=== PATIENT | female | born 1995 | race American Indian/Alaskan Native ===

== ENCOUNTER 2018-01-12 06:25 | Day surgery (SDC) | payer OTHER ==
--- NOTE | 2018-01-12 08:03 | Anesthesia Day of Surgery ---
Anesthesia Day of Surgery - Day of Surgery Patient Examined: Yes Patient H&P Reviewed: Yes Patient is NPO: Yes Beta Blockers: No
--- NOTE | 2018-01-12 08:03 | Anesthesia Consultation ---
Anesthesia Consult and Med Hx Date of service: 01/12/18 - Airway Anesthetic Teeth Evaluation: Good ROM Head & Neck: Adequate Mental/Hyoid Distance: Adequate Mallampati Class: Class I Intubation Access Assessment: Good - Pulmonary Exam CTA: Yes - Cardiac Exam Cardiac Exam: RRR - Pre-Operative Health Status ASA Pre-Surgery Classification: ASA2 Proposed Anesthetic Plan: General, MAC - Pulmonary Hx Asthma: Yes
--- NOTE | 2018-01-12 08:22 | Operative Report ---
Operative Report Operative Report: OPERATIVE REPORT - EGD DATE 01/12/18 SURGERY: 1Upper endoscopy. 2. antral mucosal biopsy SURGEON: Jose Mccord M.D. PRE OP DX: dyspepsia POST OP DX: hiatal hernia TYPE OF ANESTHESIA: MAC. ESTIMATED BLOOD LOSS: None. COMPLICATIONS: None. SPECIMENS REMOVED: None. FINDINGS: 1. Small hiatal hernia. 2. raised mucosal area at antrum INDICATIONS:INDICATION FOR PROCEDURE: Patient is a 22-year-old female with a long history of morbid obesity. She is planned to have a weight loss procedure and is here for preoperative planning EGD. PROCEDURE DETAILS: After consent was reviewed, patient was taken back to the operating room where patient was placed in the left lateral decubitus position and a bite block was placed in the mouth. After a time-out was called, MAC anesthesia was initiated. I then passed the endoscope into her oropharynx, into her esophagus, visualized the entire esophagus, which was all within normal limits. I then visualized the stomach and the first portion of the duodenum and there were no abnormalities I could clearly visualize. I then retroflexed the scope in the stomach and visualized the hiatus and I could see a small hiatal hernia. There was a raised mucosal area that was biopsied with cold forceps. It was smooth, no ulceration.I then desufflated the stomach and removed the endoscope. Patient tolerated procedure well and was transferred to recovery room in good and stable condition.
--- NOTE | 2018-01-12 08:23 | Discharge Summary ---
Providers - Providers Date of discharge: 01/12/18 Attending physician: DONALD BENÍTEZ Primary care physician: ZULEYKA FARRIS Hospitalization Condition: Good Procedures: egd Hospital course: pt had an uneventful egd as part of pre-operative planning for upcoming bariatric surgery Disposition: DC-01 TO HOME OR SELFCARE Core Measure Documentation - Palliative Care Palliative Care/ Comfort Measures: Not Applicable - Core Measures Any of the following diagnoses?: none Exam - Physical Exam Narrative exam: unchanged from per-op - Constitutional Vitals: Temp Pulse Resp BP Pulse Ox 98.1 F 93 H 10 L 146/87 96 01/12/18 07:45 01/12/18 07:45 01/12/18 07:45 01/12/18 07:45 01/12/18 07:45 Plan Activity: no restrictions Weight Bearing Status: Weight Bear as Tolerated Diet: regular Follow up with: ZULEYKA FARRIS MD [Primary Care Provider] - 7 Days
[2018-01-12] MEDS ORDERED: WATER FOR IRRIG STERILE IR ONE (08:34)
[2018-01-12] MEDS ORDERED: NACL 0.9% 1000 ML 1,000 ML IV SCH (09:00)
[2018-01-12] MEDS ORDERED: DIPRIVAN 10 MG/ML IV ONE (09:14)
[2018-01-12 10:04] VITALS: BP 131/77
--- NOTE | 2018-01-12 12:25 | Post Anesthesia Evaluation ---
- Post Anesthesia Evaluation Patient Participated: Yes Airway Patent: Yes Stable Respiratory Function: Yes Nausea/Vomiting: No Temp > 96.8F: Yes Pain Manageable: Yes Adequeate Hydration: Yes Anesthesia Complications: No Block Receding Appropriately: Not Applicable Patient on Ventilator: No
== END 2018-01-12 06:26 | disposition home or self-care (01) ==
LOC: GIO 06:25
PROVIDERS: ATTEND Surgery
DX: K44.9 Diaphragmatic hernia without obstruction or gangrene (principal); E66.01 Morbid (severe) obesity due to excess calories; J45.909 Unspecified asthma, uncomplicated; Z68.41 Body mass index [BMI] 40.0-44.9, adult
CPT/HCPCS: 43239; 81025; 88305; 88342; J2704; J7030

== ENCOUNTER 2018-01-18 05:46 | Inpatient (IN) | payer OTHER ==
[2018-01-18] MEDS ORDERED: TRANSDERM-SCOP TD NR (06:22)
[2018-01-18] MEDS ORDERED: PEPCID IV NR (06:23)
[2018-01-18] MEDS ORDERED: LOVENOX SUB-Q NR (06:23)
[2018-01-18] MEDS ORDERED: ANCEF/STERILE WATER 2 GM/20 ML IV NR (06:24)
[2018-01-18] MEDS ORDERED: FLAGYL 500 MG/100 ML 500 MG/100 ML BAG IV NR (06:25)
[2018-01-18] MEDS ORDERED: MARCAINE 0.5% 30 ML INFILTRATI ONE (06:33)
[2018-01-18] MEDS ORDERED: XYLOCAINE 1% 20 mL ONE (06:33)
[2018-01-18] MEDS ORDERED: ADRENALIN ONE (06:33)
[2018-01-18] MEDS ORDERED: LACTATED RINGERS 1,000 ML IV SCH (07:00)
--- NOTE | 2018-01-18 07:21 | Anesthesia Consultation ---
Anesthesia Consult and Med Hx - Airway Anesthetic Teeth Evaluation: Good ROM Head & Neck: Adequate Mallampati Class: Class II Intubation Access Assessment: Good - Pulmonary Exam CTA: Yes - Cardiac Exam Cardiac Exam: RRR - Pre-Operative Health Status ASA Pre-Surgery Classification: ASA2 Proposed Anesthetic Plan: General - Pulmonary Hx Smoking: No Hx Asthma: Yes Hx Sleep Apnea: No - Hematic Hx Anemia: No Hx Sickle Cell Disease: No - Other Systems Hx Alcohol Use: Yes (OCCASIONAL) Hx Substance Use: No Hx Cancer: No
--- NOTE | 2018-01-18 07:22 | Anesthesia Day of Surgery ---
Anesthesia Day of Surgery - Day of Surgery Patient Examined: Yes Patient H&P Reviewed: Yes Patient is NPO: Yes
[2018-01-18] MEDS ORDERED: VERSED IV NR (07:30)
[2018-01-18] MEDS ORDERED: DILAUDID ONE (07:33)
[2018-01-18] MEDS ORDERED: DIPRIVAN 10 MG/ML IV ONE (07:33)
[2018-01-18] MEDS ORDERED: XYLOCAINE MPF 2% ONE (08:15)
[2018-01-18] MEDS ORDERED: ZEMURON IV ONE (08:15)
[2018-01-18] MEDS ORDERED: LACTATED RINGERS 1,000 ML ONE (08:18)
[2018-01-18] MEDS ORDERED: XYLOCAINE 1% 20 mL INFILTRATI ONE ×2 (08:22)
[2018-01-18] MEDS ORDERED: NACL 0.9% IR ONE (08:23)
[2018-01-18] MEDS ORDERED: MARCAINE 0.5% INFILTRATI ONE (08:24)
[2018-01-18] MEDS ORDERED: ADRENALIN IV ONE (09:11)
[2018-01-18] MEDS ORDERED: NEO SYNEPHRINE/NS Syringe(OR USE) IV ONE (09:13)
[2018-01-18] MEDS ORDERED: ZOFRAN ONE (09:16)
[2018-01-18] MEDS ORDERED: ROBINUL ONE (09:35)
[2018-01-18] MEDS ORDERED: NEOSTIGMINE ONE (09:35)
--- NOTE | 2018-01-18 09:49 | Operative Report ---
Operative Report Operative Report: Operative Report DATE OF PROCEDURE: 01/18/18 PREOPERATIVE DIAGNOSES: Morbid obesity, hiatal hernia POSTOPERATIVE DIAGNOSES: 1.same as pre-op SURGEON: Jose Mccord M.D. FINANCE ADMIN: Carol Leigh DO PROCEDURE: 1. laparoscopic sleeve gastrectomy 2. laparoscopic hiatal hernia repair ANESTHESIA: General. ESTIMATED BLOOD LOSS: <5 mL. COMPLICATIONS: None. SPECIMEN: Partial gastrectomy. FINDINGS: 1. hiatal hernia INDICATION FOR PROCEDURE: Patient is a 22-year-old female with a long history of morbid obesity. She has tried multiple efforts at weight loss without prison success. The patient is here today for sleeve gastrectomy. PROCEDURE IN DETAIL: After consent was reviewed, patient was taken back to the operating room, where patient was placed supine on the bed with both arms out. The patient's legs were doubly strapped to the bed. Patient had a foot board in place. Patient had a body warmer placed by anesthesia. Patient was then prepped and draped in normal sterile surgical fashion. After a time-out was called, I made a stab incision in the left upper quadrant and placed a Veress needle through this incision and insufflated the abdomen to 18 mmHg pressure. I then counted down a handsbreadth below the xiphoid process in the midline and slightly left lateral injected local anesthetic and made about 1.5 cm transverse incision. I then used a 12-mm Optiview trocar to enter into the abdomen. I then placed a 45-degree scope through this port and inspected the abdomen. There was no injury on entry of the abdomen. I then placed two 5-mm ports in the right upper quadrant, one along the anterior axillary line and 1 subxiphoid below the costovertebral angle. I then placed a 15-mm port about a handsbreadth left lateral and inferior to my anterior axillary port. I then placed left upper quadrant port along the anterior axillary line in a similar fashion. I then placed the liver retractor through the subxiphoid port and placed the patient in full reverse Trendelenburg. The right and left crura were skeletonized accentuating a small hiatal hernia. An anterior cruraplasty was perfromed with a figure-of-8 stitch using surgidac suture to reapproximate the crura. I then identified the pylorus and then counted off 6cm from the pylorus. I then used a LigaSure cutting device to enter into the lesser sac. At that point and then I took down the short gastrics all the way up to the left kendra. Then I had anesthesia pass down a 40-Honduran bougie along the lesser curvature of the stomach. I made sure everything else was out of the abdomen except the bougie. I then created my gastric sleeve using a 60-mm laparoscopic stapler. . The sleeve looked good without any twisting or torsion. I then had anesthesia to remove the bougie. Hemostasis was obtained along the staple line. I then used Tiseel along the entirety of the staple line and some on the liver. I then removed liver grasper and took it off the field. I then removed the stomach through the 15-mm port. I then closed that fascia with a #1 PDS in a [id number] fashion using a Salbador-Lucio. I then desufflated the abdomen and then removed all port sites. I then closed the incisions with 4-0 Monocryl in subcuticular fashion. I then dressed the wounds with Dermabond. Patient tolerated the procedure well and was transferred to recovery room in good and stable condition
[2018-01-18] MEDS ORDERED: REGLAN IV PRN (09:50)
[2018-01-18] MEDS ORDERED: MORPHINE IV PRN (09:50)
[2018-01-18] MEDS ORDERED: NORCO PO PRN (09:50)
[2018-01-18] MEDS ORDERED: MYLICON PO PRN (09:50)
[2018-01-18] MEDS ORDERED: ZOFRAN IV PRN (09:50)
[2018-01-18] MEDS ORDERED: APRESOLINE IV PRN (09:50)
[2018-01-18] MEDS ORDERED: ANCEF/NS 1 GM/50 ML 1 GM/50 ML BAG IV SCH (10:00)
[2018-01-18] MEDS: TORADOL IV SCH ×3 (10:14→22:07)
[2018-01-18] MEDS ORDERED: ceFAZolin 1 GM in NACL 0.9% 20 ML IV SCH (14:00)
[2018-01-18] MEDS: DILAUDID IV PRN ×2 (15:03→21:08)
[2018-01-18] MEDS: LACTATED RINGERS 1,000 ML IV SCH (15:05)
[2018-01-18] MEDS: FLAGYL 500 MG/100 ML 500 MG/100 ML BAG IV SCH ×2 (15:05→22:20)
--- NOTE | 2018-01-18 15:07 | Post Anesthesia Evaluation ---
- Post Anesthesia Evaluation Patient Participated: Yes Airway Patent: Yes Stable Respiratory Function: Yes Nausea/Vomiting: No Temp > 96.8F: Yes Pain Manageable: Yes Adequeate Hydration: Yes Anesthesia Complications: No Block Receding Appropriately: Not Applicable
[2018-01-18] MEDS: LOVENOX SUB-Q SCH (16:00)
[2018-01-18] MEDS: ceFAZolin 1 GM in NACL 0.9% 20 ML IV SCH (17:27)
[2018-01-18] MEDS: PROVENTIL IH SCH (23:37)
[2018-01-19] MEDS: ceFAZolin 1 GM in NACL 0.9% 20 ML IV SCH (01:22)
[2018-01-19] MEDS: DILAUDID IV PRN (01:25)
[2018-01-19] MEDS: PROVENTIL IH SCH ×3 (01:33→11:15)
[2018-01-19] MEDS: LACTATED RINGERS 1,000 ML IV SCH (02:35)
[2018-01-19] MEDS: TORADOL IV SCH ×3 (04:14→16:46)
[2018-01-19 05:27] LABS: Basophils % (Auto) 0.2 % (0.0-1.8); Eosinophils % (Auto) 0.3 % (0.0-4.3); Hemoglobin 10.8 gm/dl (10.1-14.3); Lymphocytes # (Auto) 2.2 K/mm3 (1.2-5.4); Lymphocytes % (Auto) 18.8 % (13.4-35.0); Mean Corpuscular HGB Conc 34 % (30-34); Mean Corpuscular Hemoglobin 27 pg (28-32); Mean Corpuscular Volume 80 fl (79-97); Monocytes % (Auto) 8.6 % (0.0-7.3); Platelet Count 341 K/mm3 (140-440); Red Blood Count 3.99 M/mm3 (3.65-5.03); Red Cell Distribution Width 13.9 % (13.2-15.2)
[2018-01-19 05:50] LABS: Alanine Aminotransferase 38 units/L (7-56); Albumin 3.4 g/dL (3.9-5); BUN/Creatinine Ratio 4; Blood Urea Nitrogen 3 mg/dL (7-17); Calcium 8.3 mg/dL (8.4-10.2); Hemolysis Index 7
[2018-01-19] MEDS: FLAGYL 500 MG/100 ML 500 MG/100 ML BAG IV SCH (06:21)
[2018-01-19] MEDS: LOVENOX SUB-Q SCH (09:36)
[2018-01-19 09:44] LABS: Alanine Aminotransferase 36 units/L (7-56); Albumin 3.4 g/dL (3.9-5); BUN/Creatinine Ratio 4; Blood Urea Nitrogen 3 mg/dL (7-17); Calcium 8.3 mg/dL (8.4-10.2); Hemolysis Index 15
[2018-01-19 14:39] VITALS: BP 122/62
--- NOTE | 2018-01-19 16:44 | Discharge Summary ---
Providers - Providers Date of Admission: 01/18/18 05:46 Attending physician: DONALD BENÍTEZ Primary care physician: MARY KAY VALLEJO Hospitalization Procedures: laparoscopic sleeve gastrectomy with hiatal hernia repair Hospital course: 22 y.o. F admitted to the hospital for surgery. She underwent a laparoscopic sleeve gastrectomy with hiatal hernia repair. On pod 1 she tolerated liquids and she ambulated well on POD 1. Her pain was controlled. She was discharged on POD 1. Disposition: DC- TO HOME OR SELFCARE Core Measure Documentation - Palliative Care Palliative Care/ Comfort Measures: Not Applicable - Core Measures Any of the following diagnoses?: none Exam - Constitutional Vitals: Temp Pulse Resp BP Pulse Ox 98.2 F 101 H 18 122/62 99 01/19/18 13:21 01/19/18 13:21 01/19/18 13:21 01/19/18 13:21 01/19/18 13:21 General appearance: Present: no acute distress, well-nourished - Cardiovascular Rhythm: regular - Extremities Extremities: no ischemia - Abdominal General gastrointestinal: Present: soft, tender (at incision sites ), other ( minimally distended. soft, no rebound no guarding. incision cdi) - Integumentary Integumentary: Present: clear, warm - Musculoskeletal Musculoskeletal: strength equal bilaterally - Psychiatric Psychiatric: appropriate mood/affect, intact judgment & insight, memory intact Plan Activity: other (no lifting >15lbs for 6 weeks ) Diet: other (clear, sugar free liquids. follow bariatric handout for advancing diet ) Wound: open to air Additional Instructions: May shower with back to shower tomorrow. May take regular shower Monday. Goal fluid intake is 64oz a day. Goal protein intake is 60g. Take a multivitamin. Walk often. Use incentive spirometer. Follow up in office for wound check. Follow up with: MARY KAY VALLEJO MD [Primary Care Provider] - 7 Days
== END 2018-01-19 17:15 | disposition home or self-care (01) | DRG 327 ==
LOC: 3A 05:46 → 3B-SURG 11:12
PROVIDERS: ADMIT Surgery; ATTEND Surgery
PROC: 0DB64Z3 Excision of Stomach, Percutaneous Endoscopic Approach, Vertical (ICD-10-PCS; principal; 2018-01-18)
PROC: 0BQT4ZZ Repair Diaphragm, Percutaneous Endoscopic Approach (ICD-10-PCS; 2018-01-18)
PROC: 5A09357 Assistance with Respiratory Ventilation, Less than 24 Consecutive Hours, Continuous Positive Airway Pressure (ICD-10-PCS; 2018-01-18)
DX: K44.9 Diaphragmatic hernia without obstruction or gangrene (principal); Z68.41 Body mass index [BMI] 40.0-44.9, adult; E66.01 Morbid (severe) obesity due to excess calories; K30 Functional dyspepsia; J45.909 Unspecified asthma, uncomplicated; G43.909 Migraine, unspecified, not intractable, without status migrainosus; Z71.3 Dietary counseling and surveillance; Z82.49 Family history of ischemic heart disease and other diseases of the circulatory system; Z91.048 Other nonmedicinal substance allergy status; Z91.09 Other allergy status, other than to drugs and biological substances
CPT/HCPCS: 36415; 80053; 81025; 82962; 85025; 88307; 94640; 94660; C9250; J0171; J0690; J1170; J1650; J1885; J2250; J2370; J2405; J2704; J2710; J2765; J7120